=== PATIENT | female | born 1945 | race African-American/Black ===

== ENCOUNTER 2017-03-04 18:55 | Emergency (ER) | payer MEDICARE, MEDICAID ==
[~2017-03-04] VITALS: Ht 154.9 cm; Wt 86.0 kg
[~2017-03-04 18:55] MED LIST: glyburide; insulin
[2017-03-04] MEDS ORDERED: KETOROLAC 30MG/ML VIAL IV STA (20:49)
[2017-03-04] MEDS ORDERED: SODIUM CHLORIDE 0.9% 1,000 ML IV ONE (20:49)
[2017-03-04] MEDS ORDERED: ONDANSETRON HCL 4MG/2ML VIAL IV STA (20:49)
[2017-03-04 21:11] LABS: BASOPHILS % 0.9 % (0.0-2.0); EOSINOPHILS % 0.7 % (0.0-5.0); HEMATOCRIT. 39.9 % (36.0-48.0); HEMOGLOBIN. 13.2 g/dL (12.0-16.0); LYMPHOCYTES % 39.1 % (20.0-50.0); MEAN CORPUSCULAR HEMOGLOBIN 29.9 pg (28.0-32.0); MEAN CORPUSCULAR VOLUME 90.2 fL (81.0-99.0); MEAN PLATELET VOLUME 7.7 fl (7.4-10.4); MONOCYTES % 11.1 % (2.0-8.0); NEUTROPHILS % 48.2 % (40.0-76.0); PLATELET 291 x1000/uL (130-400); RED BLOOD CELL COUNT 4.42 mill/uL (4.2-5.4); RED CELL DISTRIBUTION WIDTH 15.4 % (11.6-14.6)
[2017-03-04 21:13] LABS: INR 1.1
[2017-03-04 21:20] LABS: CARBON DIOXIDE 19 mEq/L (21-32); CHLORIDE 102 mEq/L (98-107)
[2017-03-04 21:42] LABS: CLARITY URINE TURBID (CLEAR); COLOR URINE DARK YELLOW (YELLOW); GLUCOSE URINE NEGATIVE (NEGATIVE); KETONES URINE 1+ (NEGATIVE); LEUKOCYTE ESTERASE URINE 3+ (NEGATIVE); NITRITE URINE NEGATIVE (NEGATIVE); OCCULT BLOOD URINE NEGATIVE (NEGATIVE); PROTEIN URINE TRACE (NEGATIVE); SPECIFIC GRAVITY URINE 1.028 (1.005-1.030)
[2017-03-04 23:56] VITALS: BP 130/85
== END 2017-03-05 01:18 | disposition home or self-care (01) ==
LOC: ER 18:56
DX: R10.9 Unspecified abdominal pain (principal); R11.2 Nausea with vomiting, unspecified; I10 Essential (primary) hypertension; E11.9 Type 2 diabetes mellitus without complications; J45.909 Unspecified asthma, uncomplicated; Z88.5 Allergy status to narcotic agent
CPT/HCPCS: 36415; 74176; 80053; 81001; 82962; 83690; 85025; 85610; 93005; 96361; 96374; 96375; 99285; J1885; J2405; J7030

== ENCOUNTER 2021-01-24 10:06 | Inpatient (IN) | payer MEDICARE, MEDICAID ==
[~2021-01-24] VITALS: Ht 157.5 cm; Wt 41.4 kg
[2021-01-24] MEDS ORDERED: DONE5TAB26 PO (10:20)
[2021-01-24] MEDS ORDERED: MELO-104 PO (10:20)
[2021-01-24] MEDS ORDERED: CYCL10TA7 PO (10:20)
[2021-01-24] MEDS ORDERED: HYDR25TA PO (10:20)
[2021-01-24] MEDS ORDERED: LOSA100T32 PO (10:20)
[2021-01-24] MEDS ORDERED: PREG50CA PO (10:20)
[2021-01-24] MEDS ORDERED: ATOR20TA65 PO (10:20)
[2021-01-24] MEDS ORDERED: AMLO2.5T45 PO (10:20)
[2021-01-24] MEDS ORDERED: ONDANSETRON HCL 4MG/2ML INJ IV STA (11:04)
[2021-01-24 11:20] LABS: BASOPHILS % 0.6 % (0.0-2.0); HEMATOCRIT. 39.7 % (36.0-48.0); HEMOGLOBIN. 13.3 g/dL (12.0-16.0); LYMPHOCYTES % 13.7 % (20.0-50.0); MEAN CORPUSCULAR HEMOGLOBIN 30.4 pg (28.0-32.0); MEAN CORPUSCULAR VOLUME 90.9 fL (81.0-99.0); MEAN PLATELET VOLUME 8.9 fl (7.4-10.4); MONOCYTES % 12.3 % (2.0-8.0); NEUTROPHILS % 73.4 % (40.0-76.0); PLATELET 261 x1000/uL (130-400); RED BLOOD CELL COUNT 4.37 mill/uL (4.2-5.4); RED CELL DISTRIBUTION WIDTH 15.8 % (11.6-14.6)
[2021-01-24 11:40] LABS: CHLORIDE 100 mEq/L (98-107)
[2021-01-24 13:13] LABS: PROTHROMBIN TIME 10.9 sec (9.6-11.0)
[2021-01-24 16:00] VITALS: BP 110/68
[2021-01-24] MEDS ORDERED: CLONIDINE 0.1MG TABLET PO PRN (16:15)
[2021-01-24] MEDS ORDERED: HYDROCODONE/ACETAMINOPHEN 5/325MG TABLET PO PRN (16:15)
[2021-01-24] MEDS ORDERED: ONDANSETRON HCL 4MG/2ML INJ IV PRN (16:15)
[2021-01-24] MEDS ORDERED: HYDROMORPHONE HCL/PF 2MG/ML CPJ IV PRN (16:15)
[2021-01-24] MEDS ORDERED: MAGNESIUM/ALUMINUM HYDROXIDE/SIMETHICONE 30ML UDC PO PRN (16:15)
[2021-01-24] MEDS ORDERED: ACETAMINOPHEN 325MG TABLET PO PRN (16:15)
[2021-01-24 17:00] VITALS: BP 110/68
[2021-01-24] MEDS: PREGABALIN 50 MG CAPSULE PO SCH (17:47)
[2021-01-24] MEDS: DONEPEZIL HCL 5MG TABLET PO SCH (17:47)
[2021-01-24] MEDS: PANTOPRAZOLE SODIUM 40 MG/VIAL IV SCH (17:47)
[2021-01-24] MEDS: LOSARTAN POTASSIUM 100 MG TABLET PO SCH (17:47)
[2021-01-24] MEDS ORDERED: INFLUENZA VACCINE 05/PF 0.5 ML VIAL IM ONE (18:15)
[2021-01-24] MEDS: SODIUM CHLORIDE 0.45% 1,000 ML IV SCH (18:56)
[2021-01-24 20:00] VITALS: BP 101/62
[2021-01-24] MEDS: ATORVASTATIN CALCIUM 20MG TABLET PO SCH (21:20)
[2021-01-25] VITALS: BP 119/70
[2021-01-25 04:00] VITALS: BP 121/72
[2021-01-25] MEDS ORDERED: DEXTROSE 50% WATER 50ML SYRINGE IV PRN (04:30)
[2021-01-25] MEDS: SODIUM CHLORIDE 0.45% 1,000 ML IV SCH ×2 (05:51→18:27)
[2021-01-25 06:19] LABS: CHLORIDE 103 mEq/L (98-107)
[2021-01-25 06:31] LABS: HEMATOCRIT. 39.2 % (36.0-48.0); HEMOGLOBIN. 12.8 g/dL (12.0-16.0); MEAN CORPUSCULAR HEMOGLOBIN 30.3 pg (28.0-32.0); MEAN CORPUSCULAR VOLUME 92.6 fL (81.0-99.0); MEAN PLATELET VOLUME 8.8 fl (7.4-10.4); PLATELET 231 x1000/uL (130-400); RED BLOOD CELL COUNT 4.24 mill/uL (4.2-5.4); RED CELL DISTRIBUTION WIDTH 15.9 % (11.6-14.6)
[2021-01-25] MEDS: BLOOD SUGAR DIAGNOSTIC STRIP TEST SCH ×4 (06:45→21:00)
[2021-01-25 08:00] VITALS: BP 145/86
[2021-01-25] MEDS: PREGABALIN 50 MG CAPSULE PO SCH (09:08)
[2021-01-25] MEDS: LOSARTAN POTASSIUM 100 MG TABLET PO SCH (09:08)
[2021-01-25] MEDS: DONEPEZIL HCL 5MG TABLET PO SCH (09:08)
[2021-01-25] MEDS: PANTOPRAZOLE SODIUM 40 MG/VIAL IV SCH (09:09)
[2021-01-25] MEDS: INSULIN LISPRO 100 UNITS/ML SUBCUT SCH ×4 (09:09→22:16)
[2021-01-25] MEDS: KETOROLAC 30MG/ML VIAL IV PRN ×2 (09:27→22:26)
[2021-01-25] MEDS: POTASSIUM CHLORIDE 20MEQ TABLET SR PO SCH (11:35)
[2021-01-25 12:00] VITALS: BP 114/63
[2021-01-25 16:00] VITALS: BP 131/85
[2021-01-25 18:04] LABS: PLATELET ESTIMATE NORMAL
[2021-01-25 20:00] VITALS: BP 107/53
[2021-01-25] MEDS: ATORVASTATIN CALCIUM 20MG TABLET PO SCH (22:17)
[2021-01-26] VITALS: BP 112/79
[2021-01-26 04:00] VITALS: BP 110/69
[2021-01-26] MEDS: INSULIN LISPRO 100 UNITS/ML SUBCUT SCH (07:15)
[2021-01-26 07:25] LABS: CHLORIDE 104 mEq/L (98-107)
[2021-01-26] MEDS: PANTOPRAZOLE SODIUM 40 MG/VIAL IV SCH (10:00)
[2021-01-26] MEDS: SODIUM CHLORIDE 0.45% 1,000 ML IV SCH (10:01)
[2021-01-26] MEDS: LOSARTAN POTASSIUM 100 MG TABLET PO SCH (10:01)
[2021-01-26] MEDS: POTASSIUM CHLORIDE 20MEQ TABLET SR PO SCH (10:01)
[2021-01-26] MEDS: PREGABALIN 50 MG CAPSULE PO SCH (10:01)
[2021-01-26] MEDS: DONEPEZIL HCL 5MG TABLET PO SCH (10:01)
[2021-01-26 10:45] VITALS: BP 123/74
== END 2021-01-26 13:05 | disposition home health service (06) | DRG 392 ==
LOC: ER 10:06 → 5WST 14:46 → EDBEDREQ 15:03 → EDBEDREQTM 15:03 → ENRESERV 15:05 → CANBEDREQ 01-25 04:28
PROVIDERS: ADMIT Hospitalist; ATTEND Hospitalist
DX: K52.9 Noninfective gastroenteritis and colitis, unspecified (principal); N17.9 Acute kidney failure, unspecified; Z68.1 Body mass index [BMI] 19.9 or less, adult; E87.1 Hypo-osmolality and hyponatremia; E86.0 Dehydration; I10 Essential (primary) hypertension; E11.9 Type 2 diabetes mellitus without complications; J45.909 Unspecified asthma, uncomplicated; Z96.649 Presence of unspecified artificial hip joint; Z95.828 Presence of other vascular implants and grafts; Z88.5 Allergy status to narcotic agent; Z90.49 Acquired absence of other specified parts of digestive tract; Z80.8 Family history of malignant neoplasm of other organs or systems; R63.6 Underweight
CPT/HCPCS: 36415; 74176; 80053; 82962; 83036; 83735; 85025; 90686; 93005; 93970; 99285; C9113; J1815; J1885; J2405

== ENCOUNTER 2022-06-14 09:46 | Emergency (ER) | payer MEDICARE, MEDICAID ==
[~2022-06-14] VITALS: Ht 157.5 cm; Wt 79.0 kg
[~2022-06-14 09:46] MED LIST changes: +AMLO2.5T45 PO; +ATOR20TA65 PO; +CYCL10TA21 PO; +DONE-51 PO; +HYDR25TA PO; +LOSA100T32 PO; +MELO-104 PO; +PREG50CA PO; -glyburide; -insulin
[2022-06-14] MEDS ORDERED: FAMOTIDINE 20MG/2ML VIAL IV STA (11:04)
[2022-06-14] MEDS ORDERED: ONDANSETRON HCL 4MG/2ML INJ IV STA (11:04)
[2022-06-14] MEDS ORDERED: SODIUM CHLORIDE 0.9% 500 ML IV ONE ×2 (11:15→12:30)
[2022-06-14 11:35] LABS: BASOPHILS % 0.7 % (0.0-2.0); EOSINOPHILS % 0.2 % (0.0-5.0); HEMOGLOBIN. 12.8 g/dL (12.0-16.0); LYMPHOCYTES % 27.3 % (20.0-50.0); MEAN CORPUSCULAR HEMOGLOBIN 30.9 pg (28.0-32.0); MEAN CORPUSCULAR VOLUME 94.4 fL (81.0-99.0); MONOCYTES % 9.8 % (2.0-8.0); PLATELET 298 x1000/uL (130-400); RED BLOOD CELL COUNT 4.13 mill/uL (4.2-5.4); RED CELL DISTRIBUTION WIDTH 15.7 % (11.6-14.6)
[2022-06-14 11:46] LABS: CHLORIDE 105 mEq/L (98-107)
[2022-06-14] MEDS ORDERED: ONDA4TAB11 PO (12:52)
[2022-06-14] MEDS ORDERED: OMEP20CA14 MT (12:52)
[2022-06-14 13:15] VITALS: BP 130/76
== END 2022-06-14 13:45 | disposition home or self-care (01) ==
LOC: ER 09:46
DX: K13.79 Other lesions of oral mucosa (principal); D21.9 Benign neoplasm of connective and other soft tissue, unspecified; R19.7 Diarrhea, unspecified; I10 Essential (primary) hypertension; E11.9 Type 2 diabetes mellitus without complications; Z88.6 Allergy status to analgesic agent
CPT/HCPCS: 36415; 74176; 80053; 82962; 83690; 85025; 96361; 96374; 96375; 99284; J2405; J3490; J7040

== ENCOUNTER 2024-02-17 10:16 | Emergency (ER) | payer MEDICARE, MEDICAID ==
[~2024-02-17] VITALS: Ht 157.5 cm; Wt 84.0 kg
[~2024-02-17 10:16] MED LIST changes: -LOSA100T32 PO; +LOSA100T33 PO; +OMEP20CA14 MT; +ONDA4TAB11 PO
[2024-02-17 10:21] VITALS: BP 170/96; PULSE 92; RESP 16; TEMP 98.8; O2SAT 99
[2024-02-17 10:51] LABS: BASOPHILS % 0.6 % (0.0-2.0); EOSINOPHILS % 1.1 % (0.0-5.0); HEMATOCRIT. 40.5 % (36.0-48.0); LYMPHOCYTES % 34.6 % (20.0-50.0); MEAN CORPUSCULAR HGB CONC 34.5 g/dL (31.0-37.0); MEAN CORPUSCULAR VOLUME 92.7 fL (81.0-99.0); MEAN PLATELET VOLUME 7.4 fl (7.4-10.4); MONOCYTES % 8.2 % (2.0-8.0); NEUTROPHILS % 55.5 % (40.0-76.0); PLATELET 292 x1000/uL (130-400); RED BLOOD CELL COUNT 4.37 mill/uL (4.2-5.4); RED CELL DISTRIBUTION WIDTH 14.7 % (11.6-14.6); WHITE BLOOD COUNT 6.4 x1000/uL (4.5-11.0)
[2024-02-17] MEDS: ONDANSETRON 4MG ODT PO ONE (11:15)
[2024-02-17] MEDS: ACETAMINOPHEN 500MG TABLET PO ONE (11:15)
[2024-02-17 11:34] LABS: CHLORIDE 103 mEq/L (98-107); POTASSIUM 4.2 mEq/L (3.5-5.1); SODIUM 135 mEq/L (136-145)
[2024-02-17 11:36] LABS: CALCIUM 11.4 mg/dL (8.7-10.4); CARBON DIOXIDE 22 mEq/L (21-32)
[2024-02-17 11:41] LABS: GLUCOSE 105 mg/dL (70-105); UREA NITROGEN BLOOD 20 mg/dL (9-23)
[2024-02-17 11:42] LABS: ALANINE AMINOTRANSFERASE 22 IU/L (10-49)
[2024-02-17 11:43] LABS: ASPARTATE AMINOTRANSFERASE 30 IU/L (<34); BILIRUBIN DIRECT 0.2 mg/dL (<=3.0); BILIRUBIN TOTAL 0.7 mg/dL (0.1-1.0); PROTEIN TOTAL 9.2 g/dL (6.0-8.3)
[2024-02-17] MEDS: ACETAMINOPHEN 500MG TABLET PO SCH (13:39)
[2024-02-17] MEDS: ONDANSETRON 4MG ODT PO SCH (13:39)
[2024-02-17 13:59] LABS: CLARITY URINE CLOUDY (CLEAR); COLOR URINE YELLOW (YELLOW); GLUCOSE URINE NEGATIVE (NEGATIVE); KETONES URINE 2+ (NEGATIVE); LEUKOCYTE ESTERASE URINE 1+ (NEGATIVE); NITRITE URINE NEGATIVE (NEGATIVE); OCCULT BLOOD URINE NEGATIVE (NEGATIVE); PROTEIN URINE NEGATIVE (NEGATIVE); SPECIFIC GRAVITY URINE 1.028 (1.005-1.030)
[2024-02-17 14:25] LABS: MUCUS URINE 2+ /lpf (< = 2+); SQUAMOUS EPITHELIAL CELL URINE 2+ /lpf (RARE/1+)
[2024-02-17 14:26] LABS: BACTERIA URINE 3+; RBC URINE 0-2 /hpf (0-2)
[2024-02-17] MEDS ORDERED: CEPH500C2 MT (14:53)
[2024-02-17] MEDS ORDERED: ONDA4TAB11 PO (14:53)
== END 2024-02-17 15:17 | disposition home or self-care (01) ==
LOC: ER 10:16
DX: R11.2 Nausea with vomiting, unspecified (principal); N39.0 Urinary tract infection, site not specified; E11.9 Type 2 diabetes mellitus without complications; I10 Essential (primary) hypertension; Z98.890 Other specified postprocedural states; Z88.6 Allergy status to analgesic agent
CPT/HCPCS: 99284; 74176; 71045; 80076; 80048; 81003; 81025; 83690; 85025; 36415; Q0162